=== PATIENT | female | born 1960 | race Caucasian/White ===

== ENCOUNTER 2018-07-18 14:19 | Emergency (ER) | payer SELFPAY ==
[2018-07-18 14:20] VITALS: BP 143/86; PULSE 82; RESP 16; TEMP 35.7; O2SAT 98; BMI 32.9
--- NOTE | 2018-07-18 15:10 | CT_ITS ---
STUDY: CT BRAIN WITHOUT CONTRAST REASON FOR EXAM: Female, 58 years old. Weakness RADIATION DOSAGE (If Supplied By Facility): CTDIvol = ( 44.99 ) mGy, DLP = ( 762.36 ) mGycm TECHNIQUE: Transaxial CT imaging of the brain was performed without administration of intravenous contrast material. Individualized dose optimization techniques were used for this CT. COMPARISON: None. FINDINGS: There is no acute bleed or infarct. There are normal white matter tracts. The ventricles are normal in configuration. There is no hydrocephalus. There is mucosal hypertrophy in the maxillary sinuses. The visualized paranasal sinuses are otherwise clear. The mastoid air cells are well aerated. There is no skull fracture. CT/Brain/Head without Contrast IMPRESSION: No acute intracranial abnormality. Maxillary sinusitis. Electronically Signed: Patric Zaman, at 15:47 EDT Tel , Service support ,
--- NOTE | 2018-07-18 15:11 | EKG12_ITS ---
Test Reason : GEN ILLNESS Blood Pressure : / mmHG Vent. Rate : 064 BPM Atrial Rate : 064 BPM P-R Int : 188 ms QRS Dur : 068 ms QT Int : 398 ms P-R-T Axes : 060 061 049 degrees QTc Int : 410 ms Normal sinus rhythm Septal infarct , age undetermined Abnormal ECG Confirmed by JEAN PLUMMER, SHANA ([id number]), editor producer YOBANI MARTINS ([id number]) on 07/20/2018 1:31:33 PM Referred By: SIMONA Confirmed By:SHANA PENA MD
--- NOTE | 2018-07-18 15:12 | ED.VISSUMM ---
- ER Visit Summary Date of Service: 07/18/18 Chief Complaint: Numbness all over History of Present Illness: The patient is a 58 F who presents 1/2 hours after developing numbness all over her body. Patient describes it more as a tingling sensation. She was sitting at her desk at work and suddenly had a full body tingling sensation. It came in a hernandez. She now has nausea, mild frontal headache, and general fatigue. She states she slept well last night does not understand what she feels so tired. She donated plasma yesterday and was noted to be hypertensive at 130/100. Patient states she has no history of hypertension. No history of diabetes or thyroid disorder. Patient works does not do drugs or drink much alcohol. She has left hip and knee pain but that is been an ongoing issue. No chest pain, shortness of breath, abdominal pain, back pain or any other complaints. Physical Examination: Vital signs: afebrile, hemodynamically stable, no hypoxia on room air General: well nourished, well developed, in no distress Skin: warm, dry, no rash, no pallor, livedo reticularis of bilateral thighs (chronic) HEENT: normocephalic and atraumatic; PERRL, EOMI, moist mucous membranes Cardiovascular: regular rate and rhythm without murmurs, no peripheral edema, 2+ pulses all distal extremities Respiratory: No increased work of breathing, lungs are clear to auscultation bilaterally, no rales, rhonchi or wheezing Abdominal: Abdomen is soft, nontender with normoactive bowel sounds, no guarding or rebound, no masses MSK: Moves all extremities, no deformities, normal strength Neuro: Awake and alert, oriented ?4. No facial droop, sensation and motor function intact and symmetric, no dysarthria, no aphasia Test Results: Abnormal Lab Results 07/18/18 07/18/18 15:12 15:12 WBC 7.5 RBC 4.12 L Hgb 13.7 Hct 39.6 MCV 96.1 MCH 33.3 H MCHC 34.6 RDW 12.7 RDW Differential 44.6 H Plt Count 225 MPV 9.9 Immature Gran % (Auto) 0.100 Neut % (Auto) 50.2 Lymph % (Auto) 38.6 [place] % (Auto) 7.4 Eos % (Auto) 3.3 Baso % (Auto) 0.4 Absolute Neuts (auto) 3.8 Absolute Lymphs (auto) 2.91 Total Counted Not Reportable Sodium 140 Potassium 3.8 Chloride 109 H Carbon Dioxide 27.0 Anion Gap 4 L BUN 11 Creatinine 0.65 Estim Creat Clear Calc 77.09 Est GFR (MDRD) Af Amer 120 Est GFR (MDRD) Non-Af 99 BUN/Creatinine Ratio 16.9 Glucose 98 Calcium 8.4 L Total Bilirubin 0.30 AST 14 L ALT 26 Alkaline Phosphatase 68 Total Protein 6.1 L Albumin 3.3 Globulin 2.8 Albumin/Globulin Ratio 1.2 TSH 1.62 Clinical Impression(s) from Imaging Studies Brain CT 07/18/18 15:10 IMPRESSION: No acute intracranial abnormality. Maxillary sinusitis. Electronically Signed: Patric Zaman, at 15:47 EDT Tel , Service support , Medications Given Discontinued Medications Sodium Chloride () 1,000 mls @ 1,000 mls/hr IV .Q1H ONE Stop: 07/18/18 16:09 Last Admin: 07/18/18 15:36 Dose: 1,000 mls/hr Emergency Department Course and Treatment: Patient presents with full body tingling, nausea, fatigue and headache. Her complaints are not concerning for a stroke, and her physical exam shows no neurologic deficits. CT head was performed to look for any possible masses or intracranial hemorrhage and was negative. EKG showed a sinus rhythm without ischemic changes. CBC and BMP were unremarkable. TSH was normal. Patient was given IV fluids for hydration. She declined any medications for headache. On reevaluation she had no further nausea or tingling. At this time there is no life-threatening condition or correctable condition noted on exam. Her tingling is not focal and she has no focal neurologic deficits. Patient was discharged home and is to follow-up with her primary care doctor. Treatment Plan: [] Disposition: [] Impression: General malaise and fatigue This note was generated with [employer] software. It may contain incorrect words, spelling, and punctuation that were not noted in review of the chart prior to signing ED Disposition - Plan for ED Patient: Disposition: Home or Assisted Living Instructions: ED Weakness [facility] Referrals: William Tate MD [STAFF PHYSICIAN] - Additional Instructions: Please rest this evening and take [id number] medication as needed for headache. Drink plenty of fluids to stay hydrated. If you have any worsening of your condition or any new concerning symptoms, please return immediately to the emergency department for another evaluation.
--- NOTE | 2018-07-18 15:15 | ED.DCSUM_ITS ---
- ER Visit Summary Date of Service: 07/18/18 Chief Complaint: Numbness all over History of Present Illness: The patient is a 58 F who presents 1/2 hours after developing numbness all over her body. Patient describes it more as a tingling sensation. She was sitting at her desk at work and suddenly had a full body tingling sensation. It came in a hernandez. She now has nausea, mild frontal headache, and general fatigue. She states she slept well last night does not understand what she feels so tired. She donated plasma yesterday and was noted to be hypertensive at 130/100. Patient states she has no history of hypertension. No history of diabetes or thyroid disorder. Patient works does not do drugs or drink much alcohol. She has left hip and knee pain but that is been an ongoing issue. No chest pain, shortness of breath, abdominal pain, back pain or any other complaints. Physical Examination: Vital signs: afebrile, hemodynamically stable, no hypoxia on room air General: well nourished, well developed, in no distress Skin: warm, dry, no rash, no pallor, livedo reticularis of bilateral thighs (chronic) HEENT: normocephalic and atraumatic; PERRL, EOMI, moist mucous membranes Cardiovascular: regular rate and rhythm without murmurs, no peripheral edema, 2+ pulses all distal extremities Respiratory: No increased work of breathing, lungs are clear to auscultation bilaterally, no rales, rhonchi or wheezing Abdominal: Abdomen is soft, nontender with normoactive bowel sounds, no guarding or rebound, no masses MSK: Moves all extremities, no deformities, normal strength Neuro: Awake and alert, oriented ?4. No facial droop, sensation and motor function intact and symmetric, no dysarthria, no aphasia Test Results: Abnormal Lab Results 07/18/18 07/18/18 15:12 15:12 WBC 7.5 RBC 4.12 L Hgb 13.7 Hct 39.6 MCV 96.1 MCH 33.3 H MCHC 34.6 RDW 12.7 RDW Differential 44.6 H Plt Count 225 MPV 9.9 Immature Gran % (Auto) 0.100 Neut % (Auto) 50.2 Lymph % (Auto) 38.6 [place] % (Auto) 7.4 Eos % (Auto) 3.3 Baso % (Auto) 0.4 Absolute Neuts (auto) 3.8 Absolute Lymphs (auto) 2.91 Total Counted Not Reportable Sodium 140 Potassium 3.8 Chloride 109 H Carbon Dioxide 27.0 Anion Gap 4 L BUN 11 Creatinine 0.65 Estim Creat Clear Calc 77.09 Est GFR (MDRD) Af Amer 120 Est GFR (MDRD) Non-Af 99 BUN/Creatinine Ratio 16.9 Glucose 98 Calcium 8.4 L Total Bilirubin 0.30 AST 14 L ALT 26 Alkaline Phosphatase 68 Total Protein 6.1 L Albumin 3.3 Globulin 2.8 Albumin/Globulin Ratio 1.2 TSH 1.62 Clinical Impression(s) from Imaging Studies Brain CT 07/18/18 15:10 IMPRESSION: No acute intracranial abnormality. Maxillary sinusitis. Electronically Signed: Patric Zmaan, at 15:47 EDT Tel , Service support , Medications Given Discontinued Medications Sodium Chloride () 1,000 mls @ 1,000 mls/hr IV .Q1H ONE Stop: 07/18/18 16:09 Last Admin: 07/18/18 15:36 Dose: 1,000 mls/hr Emergency Department Course and Treatment: Patient presents with full body tingling, nausea, fatigue and headache. Her complaints are not concerning for a stroke, and her physical exam shows no neurologic deficits. CT head was performed to look for any possible masses or intracranial hemorrhage and was negative. EKG showed a sinus rhythm without ischemic changes. CBC and BMP were unremarkable. TSH was normal. Patient was given IV fluids for hydration. She declined any medications for headache. On reevaluation she had no further nausea or tingling. At this time there is no life-threatening condition or correctable condition noted on exam. Her tingling is not focal and she has no focal neurologic deficits. Patient was discharged home and is to follow-up with her primary care doctor. Treatment Plan: [] Disposition: [] Impression: General malaise and fatigue This note was generated with [employer] software. It may contain incorrect words, spelling, and punctuation that were not noted in review of the chart prior to signing ED Disposition - Plan for ED Patient: Disposition: Home or Assisted Living Instructions: ED Weakness [facility] Referrals: William Tate MD [STAFF PHYSICIAN] - Additional Instructions: Please rest this evening and take [id number] medication as needed for headache. Drink plenty of fluids to stay hydrated. If you have any worsening of your condition or any new concerning symptoms, please return immediately to the emergency department for another evaluation.
[2018-07-18] MEDS: 0.9% Normal Saline 1,000 ML 1000 ML IV (15:36)
[2018-07-18 15:37] LABS: Absolute Lymphocyte Count 2.91 X10^3/ul (0.83-4.51); Absolute Neutrophil Count 3.8 X10^3/uL (2.0-7.7); Basophil# 0.03 X10^3/uL; Basophil% 0.4 % (0-1); Eosinophil# 0.25 X10^3/uL; Eosinophils% 3.3 % (0-5); Hematocrit 39.6 % (37-47); Hemoglobin 13.7 g/dl (12.0-15.0); Lymphocyte # 2.91 X10^3/ul (4.0); Lymphocyte % 38.6 % (19-41); Mean Corp Hgb Conc 34.6 g/gl (32-36); Mean Corpuscular Hgb 33.3 pg (27.0-32.0); Mean Corpuscular Volume 96.1 fL (81-99); Mean Platelet Vol. 9.9 fl (6.2-12.0); Monocyte# 0.56 X10^3/uL; Monocyte% 7.4 % (0-10); Neutrophil # 3.78 X10^3/uL (2.7-7.7); Neutrophil % 50.2 % (47-70); Platelet Count 225 K/mm3 (150-450); RBC Distribution Width CV 12.7 % (11.6-14.6); RBC Distribution Width SD 44.6 fl (35.1-43.9); Red Blood Count 4.12 M/mm3 (4.2-5.4); White Blood Count 7.5 K/mm3 (4.4-11.0)
[2018-07-18 15:38] LABS: POSITIVE COUNT NO; POSITIVE DIFFERENTIAL NO; POSITIVE MORPHOLOGY NO
[2018-07-18 15:49] LABS: ALB/GLOB Ratio 1.2 RATIO (0.9-2.4); AST(SGOT) 14 U/L (15-37); Alanine Aminotransfer ALT/SGPT 26 U/L (13-56); Albumin, Serum 3.3 g/dL (3.2-5.0); Alkaline Phosphatase 68 U/L (45-117); Anion Gap 4 (5-15); BUN 11 mg/dL (7-18); BUN/Creat Ratio 16.9 RATIO (10-20); Calcium,Total 8.4 mg/dL (8.5-10.1); Chloride 109 mmol/L (98-107); Creatinine, Serum 0.65 mg/dL (0.55-1.02); EST Glomerular Filtration Rate 99 mL/min (>60); Est Glom Filt Rate - Afr Amer 120 mL/min (>60); Estimated Creatinine Clearance 77.09 ml/min; Globulin 2.8 g/dL (2.2-4.2); Glucose 98 mg/dL (74-106); Potassium 3.8 mmol/L (3.5-5.1); Protein, Total 6.1 g/dL (6.4-8.2); Sodium Level 140 mmol/L (136-145); Thyroid Stim Hormone (TSH) 1.62 uIU/mL (0.358-3.74)
[2018-07-18 16:30] VITALS: BP 150/76; PULSE 75; RESP 17; O2SAT 97
== END 2018-07-18 16:31 | disposition home or self-care (01) ==
PROVIDERS: Emergency Provider Emergency Medicine
DX: R53.83 Other fatigue (principal); J32.0 Chronic maxillary sinusitis; M25.562 Pain in left knee; M25.552 Pain in left hip; Z72.0 Tobacco use
CPT/HCPCS: 70450; 80053; 84443; 85025; 93005; 99283; J7030